=== PATIENT | female | born 1950 | race Caucasian/White ===

== ENCOUNTER → 2024-08-08 11:32 | Outpatient (REF) | payer MEDICARE, OTHER, SELFPAY ==
[2024-08-08 13:26] LABS: Creatine Phosphokinase 239 U/L (30-135); LDH 272 U/L (120-246); Total CK 239 U/L (30-135); Uric Acid 3.4 mg/dl (2.5-6.2)
[2024-08-08 14:14] LABS: CKMB 2.6 ng/ml (0.0-2.4)
[2024-08-10 12:12] LABS: Intact PTH 34.2 pg/ml (13.6-85.8)
[2024-08-11 02:42] LABS: Beta-2-Glycoprotein I Ab. IgA 10 SAU (<=20); Beta-2-Glycoprotein I Ab. IgG <10 SGU (<=20); Beta-2-Glycoprotein I Ab. IgM <10 SMU (<=20)
[2024-08-11 07:41] LABS: Cardiolipin IgA Antibody <10 APL (<=11); Cardiolipin IgM Antibody <10 MPL (<=12); Cardiolipin Igg Antibody <10 GPL (<=14)
== END ==
LOC: REG 11:32
PROVIDERS: ATTENDING PHYSICIAN Student in an Organized Health Care Education/Training Program; FAMILY PHYSICIAN Family Medicine
DX: M15.9 Polyosteoarthritis, unspecified (principal); M17.0 Bilateral primary osteoarthritis of knee; M79.7 Fibromyalgia; M85.80 Other specified disorders of bone density and structure, unspecified site; R25.2 Cramp and spasm; R74.8 Abnormal levels of other serum enzymes; Z78.0 Asymptomatic menopausal state; Z87.442 Personal history of urinary calculi
CPT/HCPCS: 36415; 73130; 82085; 82550; 82553; 82784; 83521; 83615; 83735; 83970; 84155; 84165; 84550; 86146; 86147; 86148; 86334

== ENCOUNTER → 2024-08-10 13:41 | Outpatient (REF) | payer MEDICARE, OTHER, SELFPAY ==
[2024-08-10 16:03] LABS: Urine Calcium 21.2 mg/dl
[2024-08-10 16:04] LABS: 24 Hour Urine Calcium 233.2 mg/day; 24 Hour Urine Total Volume 1100 ml; Urine Uric Acid 47.3 mg/dl
== END ==
LOC: REG 13:41
PROVIDERS: ATTENDING PHYSICIAN Student in an Organized Health Care Education/Training Program; FAMILY PHYSICIAN Family Medicine; REFERRING PHYSICIAN Internal Medicine
DX: M17.0 Bilateral primary osteoarthritis of knee (principal); M79.7 Fibromyalgia; M85.80 Other specified disorders of bone density and structure, unspecified site; R25.2 Cramp and spasm; R74.8 Abnormal levels of other serum enzymes; Z78.0 Asymptomatic menopausal state; Z87.442 Personal history of urinary calculi
CPT/HCPCS: 81050; 82340; 84560